=== PATIENT | male | born 1945 | race Hispanic/Latino ===

== ENCOUNTER 2018-07-27 16:07 | Inpatient (IN) | payer MEDICARE, BC ==
[2018-07-27 16:07] VITALS: BMI 29.2
[2018-07-27 17:22] LABS: URINE BILIRUBIN NEGATIVE (NEGATIVE); URINE CLARITY Clear (Clear); URINE COLOR Colorless (YELLOW); URINE GLUCOSE (UA) 3+ mg/dL (Normal); URINE LEUKOCYTE ESTERASE NEG Leu/uL (Negative); URINE PROTEIN NEGATIVE (NEGATIVE); URINE UROBILINOGEN NORMAL mg/dL (0.2-1.0)
[2018-07-27 17:31] LABS: URINE BLOOD TRACE (NEGATIVE)
[2018-07-27 17:32] LABS: BASO % 0.3 % (0.0-2.0); EOS # 0.1 K/uL (0.0-0.7); EOS % 1.2 % (0.0-4.0); HEMOGLOBIN 14.7 g/dL (12.0-18.0); LYMPH # 1.4 K/uL (1.0-4.3); LYMPH % 23.7 % (20.0-40.0); MEAN CELL VOLUME 87.1 fL (80.0-94.0); MEAN CORPUSCULAR HEMOGLOBIN 30.6 pg (27.0-31.0); MEAN CORPUSCULAR HGB CONC 35.1 g/dL (33.0-37.0); MEAN PLATELET VOLUME 7.4 fL (7.2-11.7); MONO # 0.4 K/uL (0.0-0.8); MONO % 7.4 % (0.0-10.0); NEUT # 4.1 K/uL (1.8-7.0); NEUT % 67.4 % (50.0-75.0); NRBC % 0.2 % (0.0-2.0); RBC 4.8 Mil/uL (4.40-5.90); RED CELL DISTRIBUTION WIDTH 16.5 % (11.5-14.5)
[2018-07-27 17:38] LABS: BARBITURATES, UR NEGATIVE (NEGATIVE); BENZODIAZEPINES, UR NEGATIVE (NEGATIVE); OPIATES, UR NEGATIVE (NEGATIVE); PHENCYCLIDINE, UR NEGATIVE (NEGATIVE)
[2018-07-27 17:44] LABS: ALB/GLOB RATIO 1.5 (1.0-2.1); ALBUMIN 4.9 g/dL (3.5-5.0); ALT/SGPT 27 U/L (21-72); AST/SGOT 34 U/L (17-59); BLOOD UREA NITROGEN 7 mg/dL (9-20); GFR NON-AFRICAN AMERICAN > 60
[2018-07-27] MEDS ORDERED: (Novolog) Insulin Aspart, Recombinant 100 u/ml 10 ml vial SC STA (17:48)
[2018-07-27] MEDS ORDERED: (Novolog) Insulin Aspart, Recombinant 100 u/ml 10 ml vial ONE (17:56)
--- NOTE | 2018-07-27 18:20 | C.PDOC ---
Time Seen by Provider: 07/27/18 17:04 Chief Complaint (Nursing): Substance Abuse Past Medical History Vital Signs: Last Vital Signs Temp 98.5 F 07/27/18 16:19 Pulse 88 07/27/18 16:19 Resp 15 07/27/18 16:19 BP 170/73 H 07/27/18 16:19 Pulse Ox 93 L 07/27/18 16:19 - Medical History PMH: Diabetes, HTN Denies: Hepatitis, HIV, Seizures, Sexually Transmitted Disease Surgical History: Denies: Pacemaker - [facility] Procedures ALCOHOL DETOXIFICATION (09/28/06) COLONOSCOPY (03/14/06) ENDOSC POLYPECTOMY OF LG INTEST (01/23/02) ETHMOIDECTOMY (01/20/00) INTRANASAL ANTROTOMY (01/20/00) SPHENOIDECTOMY (01/20/00) SUBMUC NASAL SEPT RESECT (01/20/00) TURBINECTOMY NEC (01/20/00) - Social History Hx Alcohol Use: Yes Hx Substance Use: No - Immunization History Hx Tetanus Toxoid Vaccination: No Hx Influenza Vaccination: No Hx Pneumococcal Vaccination: No ED Course And Treatment - Laboratory Results Result Diagrams: 07/27/18 17:26 07/27/18 17:26 O2 Sat by Pulse Oximetry: 93 Disposition - Disposition
--- NOTE | 2018-07-27 18:24 | C.PDOC ---
History Of Present Illness 72 y/o male presents to ED requesting detox from ETOH. Patient reports last use 2pm today and denies history of withdrawal seizures, HI, auditory or visual hallucinations. No other complaints at this time. Time Seen by Provider: 07/27/18 17:04 Chief Complaint (Nursing): Substance Abuse History Per: Patient History/Exam Limitations: no limitations Onset/Duration Of Symptoms: Days Current Symptoms Are (Timing): Still Present Suicide/Self Injury Attempted (Context): None Modifying Factor(s): Alcohol Past Medical History Reviewed: Historical Data, Nursing Documentation, Vital Signs Vital Signs: Last Vital Signs Temp 98.5 F 07/27/18 16:19 Pulse 88 07/27/18 16:19 Resp 15 07/27/18 16:19 BP 170/73 H 07/27/18 16:19 Pulse Ox 93 L 07/27/18 16:19 - Medical History PMH: Diabetes, HTN Surgical History: No Surg Hx - [facility] Procedures ALCOHOL DETOXIFICATION (09/28/06) COLONOSCOPY (03/14/06) ENDOSC POLYPECTOMY OF LG INTEST (01/23/02) ETHMOIDECTOMY (01/20/00) INTRANASAL ANTROTOMY (01/20/00) SPHENOIDECTOMY (01/20/00) SUBMUC NASAL SEPT RESECT (01/20/00) TURBINECTOMY NEC (01/20/00) Family History: States: No Known Family Hx - Social History Hx Alcohol Use: Yes Hx Substance Use: No - Immunization History Hx Tetanus Toxoid Vaccination: No Hx Influenza Vaccination: No Hx Pneumococcal Vaccination: No Review Of Systems Constitutional: Negative for: Fever, Chills Cardiovascular: Negative for: Chest Pain Respiratory: Negative for: Cough Skin: Negative for: Rash Psych: Positive for: Other (substance abuse). Negative for: Anxiety, Suicidal ideation Physical Exam - Physical Exam Appears: Non-toxic, No Acute Distress, Other (Mildly intoxicated) Skin: Warm, Dry, No Rash Head: Atraumatic, Normacephalic Eye(s): bilateral: Normal Inspection Oral Mucosa: Moist Neck: Supple Cardiovascular: Rhythm Regular Respiratory: Normal Breath Sounds, No Rales, No Rhonchi, No Wheezing Gastrointestinal/Abdominal: Soft, No Tenderness, No Guarding, No Rebound Neurological/Psych: Oriented x3, Normal Speech, Normal Cognition ED Course And Treatment - Laboratory Results Result Diagrams: 07/27/18 17:26 07/27/18 17:26 O2 Sat by Pulse Oximetry: 93 (RA) Progress Note: Blood work, Crisis eval. pending admission to detox bed Disposition - Disposition - Scribe Statement The provider has reviewed the documentation as recorded by the Scribe Tim Gamez All medical record entries made by the Scribe were at my direction and personally dictated by me. I have reviewed the chart and agree that the record accurately reflects my personal performance of the history, physical exam, medical decision making, and the department course for this patient. I have also personally directed, reviewed, and agree with the discharge instructions and disposition.
--- NOTE | 2018-07-27 18:40 | PCM.BM ---
<Viki Salomon - Last Filed: 07/27/18 18:39> Treatment Plan Problems - Problems identified on initial assessmt potiential for autonomic instability related to alcohol withdrawal Date Initiated: 07/27/18 Time Initiated: 18:39 Assessment reference: NA Status: Active Treatment assets and liabiliti Patient Assests: ADL independent, good support system, financial stabiity Patient Liabilities: substance abuse, medical problems - Milieu Protocol Maintain good personal hygiene: daily Encourage regular showers, daily Remind patient to perform daily oral care, daily Assist patient to perform ADL's Maintain personal safety: every shift Educate patient to report safety concerns to staff, every shift Monitor environment for contraband/sharps Medication safety: Monitor for expected outcome, potential side effects: every shift, Assess barriers to learning: every shift, Assess readiness for medication education: every shift <Tim Mak - Last Filed: 07/29/18 13:22> - Diagnosis (1) Alcohol use disorder, severe, dependence Status: Acute Interventions: 07/29/18 13:22 * Assess 7x/week regarding severity of withdrawal * Educate regarding risks, benefits, side effects and alternatives of medications * Use Motivational Interviewing for abstinence * Use CBT for relapse prevention * Medication management for withdrawal symptoms * Encourage medication assisted treatment *
[2018-07-28] MEDS: Multiple Vitamins Tab PO SCH (10:03)
--- NOTE | 2018-07-28 14:26 | PCM.PSYCH ---
Initial Psychiatric Evaluation - Initial Psychiatric Evaluation Type of Admission: Voluntary Legal Status: Capacity Chief Complaint (in patient's own words): "Im drinking too much" History of Present Illness and Precipitating Events: Kurt is a 72 y/o CM who lives at home with his and retired from work. Pt has 4 children. Pt came into the [facility] yesterday seeking detox for EtOH. Pt began drinking alcohol at the age of 17. Pt drinks on average 12 beers per day and sometimes half a pint of whiskey, last usage being yesterday morning. Pt states this is his 4th time detoxing from alcohol. Pt was sober for 1 year until he relapsed few weeks ago. Longest sobriety lasting 5 years. Pt denies SI/HI, del/halluc but he feels depressed Pt denies racing thoughts, manic episodes. Pt denies auditory, visual or tactile hallucinations Pt denies smoking. Denies heroin, benzo, marijuana or any other substance use. ~ Psych Hx: Depressed mood but no treatment Traumatic Hx: denies Family psych Hx: denies Medical Hx: non-insulin dependent DM2, Hypertension. Not well-controlled Legal Hx: unremarkable Current Medications: Active Medications Generic Name Dose Route Start Last Admin Trade Name Freq PRN Reason Stop Dose Admin Aspirin 81 mg 07/28/18 10:00 07/28/18 10:02 Aspirin Chewable PO 81 mg DAILY AURE Administration Chlordiazepoxide 25 mg 07/28/18 00:00 07/28/18 12:28 Librium PO 07/31/18 23:59 25 mg Q6 AURE Administration Taper Chlordiazepoxide 25 mg 07/27/18 19:35 07/27/18 20:00 Librium PO 25 mg Q4H PRN Administration Alcohol Withdrawal Clonidine HCl 0.1 mg 07/27/18 19:35 07/28/18 10:02 Catapres PO 0.1 mg Q4H PRN Administration Symptoms of alcohol withdrawl Folic Acid 1 mg 07/28/18 10:00 07/28/18 10:02 Folic Acid PO 1 mg DAILY AURE Administration Losartan Potassium 100 mg 07/27/18 19:30 07/28/18 10:02 Cozaar PO 100 mg DAILY AURE Administration Metformin HCl 500 mg 07/27/18 19:30 07/28/18 10:02 Glucophage PO 500 mg BID AURE Administration Multivitamins 1 tab 07/28/18 10:00 07/28/18 10:03 Hexavitamin PO 1 tab DAILY AURE Administration Naltrexone HCl 50 mg 07/28/18 10:30 07/28/18 11:02 Revia PO 50 mg DAILY AURE Administration Thiamine HCl 100 mg 07/28/18 10:00 07/28/18 10:02 Vitamin B1 Tab PO 100 mg DAILY AURE Administration Trazodone HCl 100 mg 07/28/18 22:00 Desyrel PO HS PRN Insomnia Past Psychiatric History - Past Psychiatric History Previous Treatment History: None Pertinent Medical Hx (Current Medical&Sleep Prob, Allergies): Allergies Allergy/AdvReac Type Severity Reaction Status Date / Time No Known Allergies Allergy Verified 07/27/18 16:19 Aspirin [Ecotrin] 81 mg PO DAILY 08/08/17 Levothyroxine [Synthroid] 25 mcg PO DAILY 08/08/17 Valsartan [Diovan] 160 mg PO DAILY 08/08/17 metFORMIN [glucOPHAGE] 500 mg PO BID 08/08/17 Review of Systems - Psychiatric Psychiatric: Abnormal Sleep Pattern, Anhedonia, Anxiety, Depression. absent: Auditory Hallucinations, Confusion, Difficulty Concentrating, Hallucinations, Homicidal Ideation, Paranoia, Suicidal Ideation, Visual Hallucinations, Tactile Hallucinations Mental Status Examination - Personal Presentation Personal Presentation: Looks stated age - Affect Affect: Broad - Motor Activity Motor Activity: Calm - Reliability in Providing Information Reliability in Providing Information: Good - Speech Speech: Organized - Mood Mood: Depressed, Anxious - Formal Thought Process Formal Thought Process: No Impairment - Obsessions/Compulsions Obsessions: No Compulsions: No - Cognitive Functions Orientation: Person, Place, Situation, Time Sensorium: Alert Attention/Concentration: Attentive Estimate of Intelligence: Average Judgement: Intact, as evidence by: Insight regarding need for hospitalization Memory: Recent intact, as evidence by: Ability to recall events of the day, Remote intact, as evidenced by: Ability to recall historical events - Risk Risk: Withdrawal, Diminished functioning - Strength & Assets Inventory Strength & Assets Inventory: Family support, Cooperative - Limitations Limitations: Other DSM 5 DX - DSM 5 DSM 5 Diagnosis: EtOH use disorder, severe EtOH withdrawal Depressive d/o - unspecified - Recommended/Plan of Treatment Treatment Recommendations and Plan of Treatment: Librium taper for EtOH detox Supportive tx and CBT for depression Naltrexone for cravings As need medications All risks, benefits and alternatives of the meds discussed, and the pt agreed and understood.~ Attend groups and activities Individual therapy daily Psychoeducation and support daily Encourage compliance with meds and after care Refer to outpatient program~ Teach healthy lifestyle methods, i.e. diet, exercise, meditation 33 mins Projected ELOS: 4-5 days Prognosis: good w treatment
[2018-07-29] MEDS: Multiple Vitamins Tab PO SCH (09:14)
--- NOTE | 2018-07-29 16:53 | PCM.PYCHPN ---
Psychiatric Progress Note - Psychiatric Progress Note Patient seen today, length of contact: 20 min Patient Chief Complaint: "Im better" Problems Identified/Issues Discussed: The pt is seen, chart reviewed, case discussed with staff. The pt is compliant with medications and reports no side-effects. Symptoms are improving but needs more time to stabilize. Pt attends groups and activities. Support given, psycho-education provided. After care discussed. He questioned discharge but agreed to stay and complete his treatment Medication Change: Yes (detox changes daily) Medical Record Reviewed: Yes Mental Status Examination - Cognitive Function Orientation: Person, Place, Situation, Time Memory: Impaired Attention: WNL Concentration: Poor Association: WNL Fund of Knowledge: WNL - Mood Mood: Depressed, Anxious - Affect Affect: Broad - Speech Speech: Appropriate - Formal Thought Process Formal Thought Process: No Impairment - Suicidal Ideation Suicidal Ideation: No - Homicidal Ideation Homicidal Ideation: No Goal/Treatment Plan - Goal/Treatment Plan Need for Continued Stay: Discharge may exacerbated symptoms, Severe functional impairment Progress Toward Problem(s) and Goals/Treatment Plan: Librium taper for EtOH detox Supportive tx and CBT for depression Naltrexone for cravings As need medications All risks, benefits and alternatives of the meds discussed, and the pt agreed and understood.~ Attend groups and activities Individual therapy daily Psychoeducation and support daily Encourage compliance with meds and after care Refer to outpatient program~ Teach healthy lifestyle methods, i.e. diet, exercise, meditation
--- NOTE | 2018-07-30 09:28 | PCM.PYCHPN ---
Psychiatric Progress Note - Psychiatric Progress Note Patient seen today, length of contact: 15 min Patient Chief Complaint: i m still withdrawing.' Medication Change: Yes Medical Record Reviewed: Yes Mental Status Examination - Cognitive Function Orientation: Person, Place, Situation, Time Memory: Intact Attention: WNL Concentration: Poor Association: WNL Fund of Knowledge: Poor - Mood Mood: Depressed, Anxious - Affect Affect: Broad - Speech Speech: Soft - Formal Thought Process Formal Thought Process: No Impairment - Suicidal Ideation Suicidal Ideation: No - Homicidal Ideation Homicidal Ideation: No Goal/Treatment Plan - Goal/Treatment Plan Need for Continued Stay: Severe depression anxiety, Severe functional impairment Progress Toward Problem(s) and Goals/Treatment Plan: EtOH use disorder, severe EtOH withdrawal Depressive d/o - unspecified Librium taper for EtOH detox Supportive tx and CBT for depression Naltrexone for cravings As need medications All risks, benefits and alternatives of the meds discussed, and the pt agreed and understood.~ Attend groups and activities Individual therapy daily Psychoeducation and support daily Encourage compliance with meds and after care Refer to outpatient program~ Teach healthy lifestyle methods, i.e. diet, exercise, meditation
[2018-07-30] MEDS: Multiple Vitamins Tab PO SCH (09:31)
[2018-07-31 06:32] VITALS: RESP 20
[2018-07-31 08:48] VITALS: BP 133/75; PULSE 74; TEMP 97.8; O2SAT 96
--- NOTE | 2018-07-31 08:56 | PCM.PYCHDC ---
Mental Status Examination - Mental Status Examination Orientation: Person Discharge Summary - Discharge Note Laboratory Data: Abnormal Lab Results 07/30/18 07:41 POC Glucose (mg/dL) 169 H Consultations:: List each consultation separately and include: 1. Reason for request. 2. Findings. 3. Follow-up Summary of Hospital Course include:: 1. Description of specific treatment plan utilized for patients during their course of treatmen. 2. Summarize the time- course for resolution of acute symptoms and/or regressed behaviors. 3. Describe issues identified and worked on during hospitalization. 4. Describe medication utilized. 5. Describe medical problems identified and treated. 6. Reassessment of suicide risk Summary of Hospital Course: Kurt is a 72 y/o CM who lives at home with his and retired from work. Pt has 4 children. Pt came into the [facility] yesterday seeking detox for EtOH. Pt began drinking alcohol at the age of 17. Pt drinks on average 12 beers per day and sometimes half a pint of whiskey, last usage being yesterday morning. Pt states this is his 4th time detoxing from alcohol. Pt was sober for 1 year until he relapsed few weeks ago. Longest sobriety lasting 5 years. Pt denies SI/HI, del/halluc but he feels depressed Pt denies racing thoughts, manic episodes. Pt denies auditory, visual or tactile hallucinations Pt denies smoking. Denies heroin, benzo, marijuana or any other substance use. ~ Psych Hx: Depressed mood but no treatment Traumatic Hx: denies Family psych Hx: denies Medical Hx: non-insulin dependent DM2, Hypertension. Not well-controlled Legal Hx: unremarkable He was referred [facility] but he refused and will only go to AA He has been refusing Librium since yesterday - due to "dizziness" Risks discussed He will continue with naltrexone. - Diagnosis (1) Alcohol use disorder, severe, dependence Current Visit: Yes Status: Acute - Final Diagnosis (DSM 5) Condition upon Discharge: GOOD Disposition: HOME/ ROUTINE Follow-up Treatment Plan: Librium taper for EtOH detox Supportive tx and CBT for depression Naltrexone for cravings As need medications All risks, benefits and alternatives of the meds discussed, and the pt agreed and understood.~ Attend groups and activities Individual therapy daily Psychoeducation and support daily Encourage compliance with meds and after care Refer to outpatient program~ Teach healthy lifestyle methods, i.e. diet, exercise, meditation Prescriptions/Medication Reconciliation: Aspirin [Aspirin Chewable] 81 mg PO DAILY #30 chew Losartan [Cozaar] 100 mg PO DAILY #30 tab metFORMIN [glucOPHAGE] 500 mg PO BID #60 tab Naltrexone [Revia] 50 mg PO DAILY #30 tab traZODone [Desyrel] 50 mg PO HS #30 tab
[2018-07-31] MEDS: Multiple Vitamins Tab PO SCH (09:41)
== END 2018-07-31 10:00 | disposition home or self-care (01) | DRG 897 ==
LOC: C.ER 16:07 → C.7D 18:18
PROVIDERS: ADMIT Psychiatry & Neurology Psychiatry; ATTEND Psychiatry & Neurology Psychiatry
PROC: GZHZZZZ Group Psychotherapy (ICD-10-PCS; principal; 2018-07-27)
PROC: GZ56ZZZ Individual Psychotherapy, Supportive (ICD-10-PCS; 2018-07-27)
DX: F10.230 Alcohol dependence with withdrawal, uncomplicated (principal); F10.220 Alcohol dependence with intoxication, uncomplicated; Y90.7 Blood alcohol level of 200-239 mg/100 ml; F32.9 Major depressive disorder, single episode, unspecified; I10 Essential (primary) hypertension; E11.9 Type 2 diabetes mellitus without complications

== ENCOUNTER 2019-01-30 17:50 | Inpatient (IN) | payer MEDICARE, BC ==
[2019-01-30 17:50] VITALS: BMI 29.2
--- NOTE | 2019-01-30 19:16 | C.PDOC ---
History Of Present Illness 73 year old male presents to the ED requesting alcohol detox. Patient reports he drinks daily. Patient denies SI/HI, hallucinations, injury, fall, trauma, other medical complaints. Time Seen by Provider: 01/30/19 19:16 Chief Complaint (Nursing): Substance Abuse History Per: Patient History/Exam Limitations: intoxication Onset/Duration Of Symptoms: Hrs Current Symptoms Are (Timing): Still Present Suicide/Self Injury Attempted (Context): None Modifying Factor(s): Alcohol Associated Symptoms: denies: Depression, Suicidal Thoughts, Suicidal Plan Recent travel outside of the [place]: No Additional History Per: Patient Past Medical History Reviewed: Historical Data, Nursing Documentation, Vital Signs Vital Signs: Last Vital Signs Temp 98.6 F 01/30/19 18:05 Pulse 70 01/30/19 18:05 Resp 20 01/30/19 18:05 BP 175/83 H 01/30/19 18:05 Pulse Ox 95 01/30/19 18:05 - Medical History PMH: Diabetes, HTN Denies: Hepatitis, HIV, Seizures, Sexually Transmitted Disease Surgical History: Cholecystectomy Denies: Pacemaker - [facility] Procedures ALCOHOL DETOXIFICATION (09/28/06) COLONOSCOPY (03/14/06) ENDOSC POLYPECTOMY OF LG INTEST (01/23/02) ETHMOIDECTOMY (01/20/00) GROUP PSYCHOTHERAPY (07/27/18) INDIVIDUAL PSYCHOTHERAPY, SUPPORTIVE (07/27/18) INTRANASAL ANTROTOMY (01/20/00) SPHENOIDECTOMY (01/20/00) SUBMUC NASAL SEPT RESECT (01/20/00) TURBINECTOMY NEC (01/20/00) Family History: States: Unknown Family Hx - Social History Hx Alcohol Use: Yes Hx Substance Use: No - Immunization History Hx Tetanus Toxoid Vaccination: No Hx Influenza Vaccination: No Hx Pneumococcal Vaccination: No Review Of Systems Constitutional: Negative for: Fever, Chills Cardiovascular: Negative for: Chest Pain, Palpitations Respiratory: Negative for: Cough, Shortness of Breath Gastrointestinal: Negative for: Nausea, Vomiting, Abdominal Pain Neurological: Negative for: Weakness, Numbness Psych: Negative for: Depression, Suicidal ideation Physical Exam - Physical Exam Appears: Non-toxic, No Acute Distress Skin: Warm, Dry Head: Normacephalic Eye(s): bilateral: Normal Inspection Oral Mucosa: Moist Neck: Supple Chest: Symmetrical Cardiovascular: Rhythm Regular Respiratory: No Rales, No Rhonchi, No Wheezing Gastrointestinal/Abdominal: Bowel Sounds (active), Soft, No Tenderness, Distention, No Guarding, No Rebound Extremity: Bilateral: Atraumatic, Normal Color And Temperature, Normal ROM Neurological/Psych: Oriented x3, Normal Speech, Normal Cognition Gait: Steady ED Course And Treatment - Laboratory Results Result Diagrams: 01/30/19 19:21 01/30/19 19:21 O2 Sat by Pulse Oximetry: 95 (On RA) Pulse Ox Interpretation: Normal Progress Note: Plan: - Labs. - UA. - Crisis Disposition Discussed With Dr.: Adrianna Lehman Comment: accepted the pt on his service and took over the care at 1:39AM Doctor Will See Patient In The: Hospital Counseled Patient/Family Regarding: Studies Performed, Diagnosis - Disposition Disposition: HOSPITALIZED Disposition Time: 19:16 Condition: FAIR Forms: [facility] (Urdu) - POA Present On Arrival: Poor Glycemic Control - Clinical Impression Clinical Impression: Alcohol use disorder, severe, dependence - Scribe Statement The provider has reviewed the documentation as recorded by the Scribe Inder Pastrana All medical record entries made by the Scribe were at my direction and personally dictated by me. I have reviewed the chart and agree that the record accurately reflects my personal performance of the history, physical exam, medical decision making, and the department course for this patient. I have also personally directed, reviewed, and agree with the discharge instructions and disposition. Decision To Admit - Pt Status Changed To: Hospital Disposition Of: Inpatient - Admit Certification Admit to Inpatient:: After my assessment, the patient will require hospitalization for at least two midnights. This is because of the severity of symptoms shown, intensity of services needed, and/or the medical risk in this patient being treated as an outpatient. - InPatient: Physician Admission Certification: I certify that this patient requires 2 or more midnights of care for the following reason:: After my assessment, the patient will require hospitalization for at least two midnights. This is because of the severity of symptoms shown, intensity of services needed, and/or the medical risk in this patient being treated as an outpatient. - . Bed Request Type: Detox Admitting Physician: Adrianna Lehman Patient Diagnosis: Alcohol use disorder, severe, dependence
[2019-01-30 19:23] LABS: HEMOGLOBIN 13.6 g/dL (12.0-18.0); MEAN CORPUSCULAR HEMOGLOBIN 31.1 pg (27.0-31.0); MEAN CORPUSCULAR HGB CONC 34.5 g/dL (33.0-37.0); RBC 4.36 Mil/uL (4.40-5.90)
[2019-01-30 19:24] LABS: BASO % 0.1 % (0.0-2.0); EOS % 0.1 % (0.0-4.0); LYMPH % 19.2 % (20.0-40.0); MEAN PLATELET VOLUME 8.1 fL (7.2-11.7); MONO # 0.5 K/uL (0.0-0.8); MONO % 9.3 % (0.0-10.0); NEUT # 3.6 K/uL (1.8-7.0); NEUT % 71.3 % (50.0-75.0)
[2019-01-30 19:29] LABS: MEAN CELL VOLUME 90.2 fL (80.0-94.0)
[2019-01-30 19:39] LABS: BARBITURATES, UR NEGATIVE (NEGATIVE); BENZODIAZEPINES, UR NEGATIVE (NEGATIVE); OPIATES, UR NEGATIVE (NEGATIVE); PHENCYCLIDINE, UR NEGATIVE (NEGATIVE)
[2019-01-30 19:40] LABS: ALB/GLOB RATIO 1.7 (1.0-2.1); ALBUMIN 4.5 g/dL (3.5-5.0); ALT/SGPT 43 U/L (21-72); AST/SGOT 84 U/L (17-59); BLOOD UREA NITROGEN 8 mg/dL (9-20); CALCIUM 8.7 mg/dl (8.6-10.4); GFR NON-AFRICAN AMERICAN > 60
[2019-01-30 19:55] LABS: URINE BACTERIA RARE (<OCC); URINE BILIRUBIN NEGATIVE (NEGATIVE); URINE BLOOD 2+ (NEGATIVE); URINE CLARITY Clear (Clear); URINE COLOR Yellow (YELLOW); URINE GLUCOSE (UA) 3+ mg/dL (Normal); URINE LEUKOCYTE ESTERASE NEG Leu/uL (Negative); URINE PROTEIN 1+ mg/dL (NEGATIVE); URINE UROBILINOGEN NORMAL mg/dL (0.2-1.0)
--- NOTE | 2019-01-31 02:05 | PCM.BM ---
<Jareth Stewart - Last Filed: 01/31/19 02:02> Treatment Plan Problems - Problems identified on initial assessmt Altered Health Maintenance Date Initiated: 01/31/19 Time Initiated: 02:30 Assessment reference: NA Status: Active Defensive Coping Date Initiated: 01/31/19 Time Initiated: 02:30 Assessment reference: NA Status: Active Treatment assets and liabiliti Patient Assests: cooperative, ADL independent, financial stabiity Patient Liabilities: substance abuse - Milieu Protocol Maintain good personal hygiene: daily Encourage regular showers, daily Remind patient to perform daily oral care, daily Assist patient to perform ADL's Maintain personal safety: every shift Educate patient to report safety concerns to staff, every shift Monitor environment for contraband/sharps Medication safety: Monitor for expected outcome, potential side effects: every shift, Assess barriers to learning: every shift, Assess readiness for medication education: every shift <Dank Patel - Last Filed: 02/01/19 17:15> - Diagnosis (1) Alcohol use disorder, severe, dependence Status: Acute Interventions: 02/01/19 17:15 * Assess/adjust medications daily and /or as needed * See patient on an individual basis 7x/week to assess symptoms of depression * Monitor for side effects & effectiveness of medications <Nandini Dougherty - Last Filed: 02/02/19 10:29> Family Contact Family involvement: Doy/SO not involved - Goals for Treatment Patient goals for treatment: COMPLETE DETOX AND RESUME ATTENDANCE AT AA MEETINGS. 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
--- NOTE | 2019-01-31 17:38 | PCM.PSYCH ---
Initial Psychiatric Evaluation - Initial Psychiatric Evaluation Type of Admission: Voluntary Legal Status: Capacity Chief Complaint (in patient's own words): I need help for my alcohol drinking. History of Present Illness and Precipitating Events: Patient is a 73 years old, , retired, male with no previous psychiatric history was admitted due to withdrawing from alcohol. Alcohol: Patient started drinking alcohol at 17 years of age, increased gradually. Currently he was drinking one quarter of whiskey and 6 packs of beer daily. He was drinking this much amount for last 3 weeks. His longest period of abstinence was 5 years, 7 years ago. He has history of for detox and 1 rehab in the past. Patient was attending AA meetings and has sponsor. Patient was born in [place], moved to [place] in [place]. 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 He is and has 4 grownup children. He lives with his . Current Medications: Active Medications Generic Name Dose Route Start Last Admin Trade Name Freq PRN Reason Stop Dose Admin Aspirin 81 mg 01/31/19 10:00 01/31/19 11:00 Ecotrin PO 81 mg DAILY AURE Administration Chlordiazepoxide 25 mg 01/31/19 06:00 01/31/19 11:01 Librium PO 02/04/19 05:59 25 mg Q6 AURE Administration Taper Chlordiazepoxide 25 mg 01/31/19 02:32 01/31/19 08:49 Librium PO 25 mg Q4H PRN Administration Alcohol Withdrawal Clonidine HCl 0.1 mg 01/31/19 01:58 01/31/19 02:39 Catapres PO 0.1 mg Q6 PRN Administration Symptoms of alcohol withdrawl Dicyclomine HCl 10 mg 01/31/19 02:01 Bentyl PO Q6 PRN Muscle spasm Hydroxyzine HCl 25 mg 01/31/19 01:59 01/31/19 02:39 Atarax PO 25 mg Q6 PRN Administration Anxiety Ibuprofen 600 mg 01/31/19 01:59 Motrin Tab PO Q6 PRN Pain, moderate (4-7) Levothyroxine Sodium 25 mcg 02/01/19 06:30 Synthroid PO DAILY@0630 AURE Loperamide HCl 2 mg 01/31/19 08:18 01/31/19 15:59 Imodium PO 2 mg QID PRN Administration Diarrhea Losartan Potassium 100 mg 01/31/19 10:00 01/31/19 11:00 Cozaar PO 100 mg DAILY AURE Administration Metformin HCl 500 mg 01/31/19 10:00 01/31/19 11:00 Glucophage PO 500 mg BID AURE Administration Past Psychiatric History - Past Psychiatric History Previous Treatment History: Inpatient At [facility]: 1 at [facility] History of Abuse: None reported History of ETOH/Drug Use: See HPI History of Family Illness: None reported Pertinent Medical Hx (Current Medical&Sleep Prob, Allergies): Allergies Allergy/AdvReac Type Severity Reaction Status Date / Time No Known Allergies Allergy Verified 01/30/19 18:12 Aspirin [Ecotrin] 81 mg PO DAILY 08/08/17 Levothyroxine [Synthroid] 25 mcg PO DAILY 08/08/17 Valsartan [Diovan] 160 mg PO DAILY 08/08/17 metFORMIN [glucOPHAGE] 500 mg PO BID 08/08/17 Hypertension Diabetes mellitus Hypothyroidism Review of Systems - Psychiatric Psychiatric: As Per HPI, Anhedonia, Anxiety Mental Status Examination - Personal Presentation Personal Presentation: Looks stated age - Affect Affect: Other (Appropriate) - Motor Activity Motor Activity: Calm - Reliability in Providing Information Reliability in Providing Information: Fair - Speech Speech: Organized - Mood Mood: Anxious - Formal Thought Process Formal Thought Process: No Impairment - Hallucinations/Delusions Hallucinations: Other (None reported) Delusions: Other - Obsessions/Compulsions Obsessions: None Compulsions: None - Cognitive Functions Orientation: Person, Place, Situation, Time Sensorium: Alert Attention/Concentration: Attentive Abstract Thinking: [place] Estimate of Intelligence: Average Judgement: Intact, as evidence by: Insight regarding need for hospitalization Memory: Recent intact, as evidence by: Ability to recall events of the day, Remote intact, as evidenced by: Ability to recall historical events - Risk Risk: Withdrawal, Diminished functioning - Strength & Assets Inventory Strength & Assets Inventory: Family support, Cooperative - Limitations Limitations: Other (Lives with his ) DSM 5 DX - DSM 5 DSM 5 Diagnosis: Alcohol withdrawal Alcohol use disorder severe - Recommended/Plan of Treatment Treatment Recommendations and Plan of Treatment: Patient education. Supportive therapy. CBT for relapse prevention. [place] for abstinence. We will start Librium taper for alcohol withdrawal symptoms. Other as needed medications. Projected ELOS: 4-5 days Discharge Plan and Discharge Criteria: Minimal or no withdrawal symptoms - Smoking Cessation Smoking Cessation Initiated: No Reason for not providing: Patient does not smoke cigarettes.
[2019-02-01] MEDS: Levothyroxine 25 MCG TAB PO SCH (06:27)
--- NOTE | 2019-02-01 17:13 | PCM.PYCHPN ---
Psychiatric Progress Note - Psychiatric Progress Note Patient seen today, length of contact: 15 minutes Patient Chief Complaint: I am feeling little better, but my blood sugar is high. Problems Identified/Issues Discussed: Patient seen, chart reviewed, case discussed with the staff. Issues related to illness and treatment were discussed with the patient and staff. Reported compliance with treatment with no adverse effect. Tolerating treatment very well. Patient reported feeling little better, still has withdrawal symptoms including body aches, sweating, nausea, decreased sleep and headache. Patient's blood sugar is high. We will increase the dose of metformin to 750 mg twice a day. Mood reported as anxious. Affect appropriate. Aftercare discussed with the patient. Patient denied any delusions, auditory or visual hallucinations, no suicidal ideations or homicidal ideations at the time of the evaluation. Medical Problems: Hypertension Diabetes mellitus Hypothyroidism Diagnostic Results: Reviewed DSM 5 Symptoms Update: Some improvement with treatment. Medication Change: No Medical Record Reviewed: Yes Mental Status Examination - Cognitive Function Orientation: Person, Place, Situation, Time Memory: Intact Attention: WNL Concentration: WNL Association: [facility] Fund of Knowledge: [facility] Decription of patient's judgement and insights: Fair - Mood Mood: Anxious (Less than before) - Affect Affect: Other (Appropriate) - Speech Speech: Appropriate - Formal Thought Process Formal Thought Process: No Impairment Psychotic Thoughts and Behaviors: None - Suicidal Ideation Suicidal Ideation: No - Homicidal Ideation Homicidal Ideation: No Goal/Treatment Plan - Goal/Treatment Plan Need for Continued Stay: Remain at risks for inpatient hospitalization, Discharge may exacerbated symptoms, Severe functional impairment Progress Toward Problem(s) and Goals/Treatment Plan: Patient education. Supportive therapy. CBT for relapse prevention. [place] for abstinence. Continue treatment as before. Estimated Date of D/C: 02/03/19 - Smoking Cessation Smoking Cessation Initiated: No
[2019-02-02] MEDS: Levothyroxine 25 MCG TAB PO SCH (06:59)
--- NOTE | 2019-02-02 23:50 | PCM.PYCHPN ---
Psychiatric Progress Note - Psychiatric Progress Note Patient seen today, length of contact: 15 minutes Patient Chief Complaint: I am feeling better. Problems Identified/Issues Discussed: Patient seen, chart reviewed, case discussed with the staff. Issues related to illness and treatment were discussed with the patient and staff. Reported compliance with treatment with no adverse effect. Tolerating treatment very well. Patient reported feeling better, still has some withdrawal symptoms including body aches, sweating, nausea, decreased sleep and headache. Patient's blood sugar is high. We will increase the dose of metformin to 750 mg twice a day. Mood reported as anxious. Affect appropriate. Aftercare discussed with the patient. Patient denied any delusions, auditory or visual hallucinations, no suicidal ideations or homicidal ideations at the time of the evaluation. Medical Problems: Hypertension Diabetes mellitus Hypothyroidism Diagnostic Results: Reviewed DSM 5 Symptoms Update: Some improvement with treatment. Medication Change: No Medical Record Reviewed: Yes Mental Status Examination - Cognitive Function Orientation: Person, Place, Situation, Time Memory: Intact Attention: WNL Concentration: WNL Association: [facility] Fund of Knowledge: [facility] Decription of patient's judgement and insights: Fair - Mood Mood: Anxious (Less than before) - Affect Affect: Other (Appropriate) - Speech Speech: Appropriate - Formal Thought Process Formal Thought Process: No Impairment Psychotic Thoughts and Behaviors: None - Suicidal Ideation Suicidal Ideation: No - Homicidal Ideation Homicidal Ideation: No Goal/Treatment Plan - Goal/Treatment Plan Need for Continued Stay: Remain at risks for inpatient hospitalization, Discharge may exacerbated symptoms, Severe functional impairment Progress Toward Problem(s) and Goals/Treatment Plan: Patient education. Supportive therapy. CBT for relapse prevention. [place] for abstinence. Continue treatment as before. Estimated Date of D/C: 02/03/19 - Smoking Cessation Smoking Cessation Initiated: No
[2019-02-03] MEDS: Levothyroxine 25 MCG TAB PO SCH (06:23)
--- NOTE | 2019-02-03 22:32 | PCM.PYCHPN ---
Psychiatric Progress Note - Psychiatric Progress Note Patient seen today, length of contact: 15 minutes Patient Chief Complaint: "I feel slightly better today" Problems Identified/Issues Discussed: Patient was seen and chart was reviewed. Case was discussed with staff. Issued related to the illness and treatment were discussed with the patient, and issues related to illness and treatment were discussed with the patient and staff. Patient reported compliance with treatment and no adverse effects from the medications were reported. Patient is tolerating treatment well at this time. Patient denies any withdrawal symptoms such as body aches, sweating, nausea, decreased sleep or headaches at this time. Patient reports mood as still depressed, affect is congruent with mood. Patient reports still being unsteady on his feet and fatigue. Aftercare was discussed with patient and he verbalized understanding. Patient denies any delusions, auditory/visual hallucinations, or perceptual disturbances. Patient also denies any suicidal or homicidal ideation/plan/intent at this time. Medication Change: No Medical Record Reviewed: Yes Mental Status Examination - Cognitive Function Orientation: Person, Place, Situation, Time Memory: Intact Attention: WNL Concentration: WNL Association: WNL Fund of Knowledge: Poor - Mood Mood: Depressed, Anxious (Less than before) - Affect Affect: Constricted, Depressed - Speech Speech: Appropriate - Formal Thought Process Formal Thought Process: No Impairment - Suicidal Ideation Suicidal Ideation: No - Homicidal Ideation Homicidal Ideation: No Goal/Treatment Plan - Goal/Treatment Plan Need for Continued Stay: Remain at risks for inpatient hospitalization, Discharge may exacerbated symptoms, Severe functional impairment Progress Toward Problem(s) and Goals/Treatment Plan: Supportive therapy and psychoeducation [place] for abstinence CBT for relapse prevention Encourage MAT Refer to rehab or IOP, self-help groups [place] for encouraging patient to go into detention rehab to prevent relapse Encouraging her family's involvement in care post-detox for support Continue with treatment as before Estimated Date of D/C: 02/05/19
[2019-02-04] MEDS: Levothyroxine 25 MCG TAB PO SCH (06:06)
--- NOTE | 2019-02-04 18:34 | PCM.PYCHPN ---
Psychiatric Progress Note - Psychiatric Progress Note Patient seen today, length of contact: 15 minutes Patient Chief Complaint: "I feel depressed" Problems Identified/Issues Discussed: Patient was seen again today and chart was reviewed. Case was discussed with the team. The pt denies any side-effects from meds. Attends activities and groups, brief individual therapy provided Not ready for discharge due to ongoing symptoms and high relapse risk. He reports feeling depressed, and states he is not motivated to get out of bed. He is requesting for additional time to help with his symptoms. Patient denies any delusions, auditory/visual hallucinations, or perceptual disturbances. Patient also denies any suicidal or homicidal ideation/plan/intent at this time. After care discussed again. Medication Change: No Medical Record Reviewed: Yes Mental Status Examination - Cognitive Function Orientation: Person, Place, Situation, Time Memory: Intact Attention: WNL Concentration: WNL Association: WNL Fund of Knowledge: Poor - Mood Mood: Depressed, Anxious (Less than before) - Affect Affect: Constricted, Depressed - Speech Speech: Appropriate - Formal Thought Process Formal Thought Process: No Impairment - Suicidal Ideation Suicidal Ideation: No - Homicidal Ideation Homicidal Ideation: No Goal/Treatment Plan - Goal/Treatment Plan Need for Continued Stay: Remain at risks for inpatient hospitalization, Discharge may exacerbated symptoms, Severe functional impairment Progress Toward Problem(s) and Goals/Treatment Plan: Supportive therapy and psychoeducation [place] for abstinence CBT for relapse prevention Encourage MAT Refer to rehab or IOP, self-help groups [place] for encouraging patient to go into [facility] to prevent relapse Encouraging her family's involvement in care post-detox for support Continue with treatment as before Estimated Date of D/C: 02/05/19
[2019-02-05] MEDS: Levothyroxine 25 MCG TAB PO SCH (06:19)
--- NOTE | 2019-02-05 08:20 | PCM.PYCHDC ---
Mental Status Examination - Mental Status Examination Orientation: Person Discharge Summary - Discharge Note Consultations:: List each consultation separately and include: 1. Reason for request. 2. Findings. 3. Follow-up Summary of Hospital Course include:: 1. Description of specific treatment plan utilized for patients during their course of treatmen. 2. Summarize the time- course for resolution of acute symptoms and/or regressed behaviors. 3. Describe issues identified and worked on during hospitalization. 4. Describe medication utilized. 5. Describe medical problems identified and treated. 6. Reassessment of suicide risk Summary of Hospital Course: He will go to [facility] but will call rehabs as he is still undecided. - Final Diagnosis (DSM 5) Condition upon Discharge: IMPROVED Disposition: HOME/ ROUTINE Prescriptions/Medication Reconciliation: Aspirin [Ecotrin] 81 mg PO DAILY #30 tabec Levothyroxine [Synthroid] 25 mcg PO DAILY@0630 #30 tab Losartan [Cozaar] 100 mg PO DAILY #30 tab metFORMIN ER [glucoPHAGE XR] 750 mg PO BID #60 ter
[2019-02-05 11:48] VITALS: BP 182/73; PULSE 78; RESP 18; TEMP 97.5; O2SAT 96
== END 2019-02-05 10:45 | disposition home or self-care (01) | DRG 895 ==
LOC: C.ER 17:50 → C.7D 01-31 01:38
PROVIDERS: ADMIT Psychiatry & Neurology Psychiatry; ATTEND Psychiatry & Neurology Psychiatry
PROC: HZ2ZZZZ Detoxification Services for Substance Abuse Treatment (ICD-10-PCS; principal; 2019-01-31)
PROC: HZ59ZZZ Individual Psychotherapy for Substance Abuse Treatment, Supportive (ICD-10-PCS; 2019-01-31)
PROC: HZ46ZZZ Group Counseling for Substance Abuse Treatment, Psychoeducation (ICD-10-PCS; 2019-01-31)
DX: F10.230 Alcohol dependence with withdrawal, uncomplicated (principal); I10 Essential (primary) hypertension; E11.9 Type 2 diabetes mellitus without complications; E03.9 Hypothyroidism, unspecified; Z79.84 Long term (current) use of oral hypoglycemic drugs